=== PATIENT | female | born 1955 | race Caucasian/White ===

== ENCOUNTER 2019-08-28 16:00 | Emergency (ER) | payer MEDICAID, OTHER ==
[~2019-08-28] VITALS: Ht 157.5 cm; Wt 59.0 kg
[2019-08-28 16:27] VITALS: BP 137/84
== END 2019-08-28 18:36 | disposition home or self-care (01) ==
LOC: ER 16:00
DX: S93.402A Sprain of unspecified ligament of left ankle, initial encounter (principal); W01.0XXA Fall on same level from slipping, tripping and stumbling without subsequent striking against object, initial encounter; Y93.89 Activity, other specified; Y92.89 Other specified places as the place of occurrence of the external cause; Y99.8 Other external cause status
CPT/HCPCS: 73610; 99283

== ENCOUNTER 2022-06-18 23:42 | Emergency (ER) | payer MEDICARE, MEDICAID ==
[~2022-06-18] VITALS: Ht 157.5 cm; Wt 57.7 kg
[2022-06-18 23:57] VITALS: BP 144/104
[2022-06-19] MEDS ORDERED: HYDROcodone/acetaminophen 5mg/325mg tablet PO ONE (01:50)
[2022-06-19] MEDS ORDERED: HYDR-3965 PO (01:51)
== END 2022-06-19 02:10 | disposition home or self-care (01) ==
LOC: ER 23:42
DX: M54.59 Other low back pain (principal); Z88.8 Allergy status to other drugs, medicaments and biological substances; Z79.899 Other long term (current) drug therapy; W11.XXXA Fall on and from ladder, initial encounter; Y93.89 Activity, other specified; Y92.89 Other specified places as the place of occurrence of the external cause; Y99.8 Other external cause status
CPT/HCPCS: 72070; 99284

== ENCOUNTER 2022-08-23 18:28 | Emergency (ER) | payer OTHER, MEDICAID ==
[~2022-08-23] VITALS: Ht 157.5 cm; Wt 59.1 kg
[2022-08-23 18:54] VITALS: BP 162/92
== END 2022-08-23 21:23 | disposition left against medical advice (07) ==
LOC: ER 18:29
DX: M54.9 Dorsalgia, unspecified (principal); Z53.21 Procedure and treatment not carried out due to patient leaving prior to being seen by health care provider
CPT/HCPCS: 99281

== ENCOUNTER 2023-07-25 09:50 | Day surgery (SDC) | payer OTHER, MEDICAID ==
[~2023-07-25] VITALS: Ht 157.5 cm; Wt 54.5 kg
[~2023-07-25 09:50] MED LIST: ALBUTEROL; CHOL500044 PO; DULO20CA18 PO; HYDR-3965 PO; LEVO50TA8 PO; LISI10TA27 PO; ROSU10TA28 PO
[2023-07-25 10:18] VITALS: BP 165/94; PULSE 85; RESP 16
[2023-07-25] MEDS ORDERED: MIDAZolam 1 MG/ML 5ML VIAL ONE (11:31)
[2023-07-25] MEDS ORDERED: fentaNYL/PF 50MCG/1 ML 2ML syringe ONE (11:31)
[2023-07-25] MEDS ORDERED: diphenhydrAMINE 50 mg/ml inj ONE (11:31)
[2023-07-25 12:07] VITALS: BP 140/90; PULSE 71; RESP 14; O2SAT 100
[2023-07-25 12:17] VITALS: BP 137/84; PULSE 89; RESP 16; O2SAT 98
[2023-07-25 12:27] VITALS: BP 136/43; PULSE 70; RESP 15; O2SAT 98
[2023-07-25 12:37] VITALS: BP 138/82; PULSE 66; RESP 17; O2SAT 98
== END 2023-07-25 13:22 | disposition home or self-care (01) ==
LOC: GI LAB 09:50
PROVIDERS: ATTEND Internal Medicine Gastroenterology
DX: Z12.11 Encounter for screening for malignant neoplasm of colon (principal); K57.30 Diverticulosis of large intestine without perforation or abscess without bleeding
CPT/HCPCS: 99153; G0121; G0500; J1200; J2250; J3010; J7030; Z7512; 45378; 99152; A4620

== ENCOUNTER 2023-07-28 10:56 | Emergency (ER) | payer OTHER, MEDICAID ==
[~2023-07-28] VITALS: Ht 157.5 cm; Wt 56.9 kg
[2023-07-28 10:58] VITALS: BP 157/97
[2023-07-28] MEDS: ketorolac tromethamine 15mg/ml inj. IM ONE (12:21)
[2023-07-28] MEDS ORDERED: CYCL-394 PO (12:41)
[2023-07-28 13:13] VITALS: PULSE 70; TEMP 98.9; O2SAT 99
[2023-07-28 13:14] VITALS: RESP 17
== END 2023-07-28 13:14 | disposition home or self-care (01) ==
LOC: ER 10:56
DX: S29.012A Strain of muscle and tendon of back wall of thorax, initial encounter (principal); Z88.8 Allergy status to other drugs, medicaments and biological substances; Z79.899 Other long term (current) drug therapy; W19.XXXA Unspecified fall, initial encounter; Y93.89 Activity, other specified; Y92.89 Other specified places as the place of occurrence of the external cause; Y99.8 Other external cause status
CPT/HCPCS: 72074; 96372; 99284; J1885

== ENCOUNTER 2023-08-07 14:14 | Emergency (ER) | payer OTHER, MEDICAID ==
[~2023-08-07] VITALS: Ht 157.5 cm; Wt 56.8 kg
[~2023-08-07 14:14] MED LIST changes: +CYCL-394 PO; -HYDR-3965 PO; -ROSU10TA28 PO; +ROSU10TA72 PO
[2023-08-07 14:55] LABS: BASOPHILS % (AUTO) 0.8 % (0-1); EOSINOPHILS % (AUTO) 0.1 % (0-6); HEMATOCRIT 43.4 % (35.0-45.0); HEMOGLOBIN 14.2 g/dl (12.0-16.0); LYMPHOCYTES # (AUTO) 0.9 X10'3 (1.1-4.8); MEAN CORPUSCULAR HGB CONC 32.8 g/dL (33.0-36.5); MEAN CORPUSCULAR VOLUME 88.6 FL (78-98); MEAN PLATELET VOLUME 9.4 FL (7.4-10.4); MONOCYTES # (AUTO) 0.4 X10'3 (0-0.9); MONOCYTES % (AUTO) 7.2 % (2-12); NEUTROPHILS # (AUTO) 4.1 X10'3 (1.8-7.7); NEUTROPHILS % (AUTO) 74.9 % (42-75); PLATELET COUNT 213 X10'3 (140-440); RED BLOOD COUNT 4.91 X10'6 (4.20-5.60); RED CELL DISTRIBUTION WIDTH 14.5 % (11.5-14.5); WHITE BLOOD COUNT 5.4 X10'3 (4.5-11.0)
[2023-08-07 15:16] LABS: ALBUMIN 3.9 G/DL (3.4-5.0); ANION GAP 10 (8-16); BLOOD UREA NITROGEN 13 MG/DL (7-18); BUN/CREATININE RATIO 14.8 (10.0-20.0); CALCIUM 9.4 MG/DL (8.5-10.1); CHLORIDE 106 MMOL/L (99-107); CREATININE 0.88 MG/DL (0.40-0.90); GLUCOSE 131 MG/DL (70-104); POTASSIUM 3.8 MMOL/L (3.5-5.1); PRO BRAIN NATRIURETIC PEPTIDE 76 PG/ML (0-125); SODIUM 143 MMOL/L (135-145); TOTAL CARBON DIOXIDE 26.8 MMOL/L (24-32); eCRCL 50 ML/MIN; eGFR 64 ML/MIN
[2023-08-07 15:29] LABS: D-DIMER 0.46 MG/L FEU (0-0.50)
[2023-08-07] MEDS ORDERED: FLUT1BLS4 INH (17:58)
[2023-08-07] MEDS ORDERED: HYDR-3973 PO (17:58)
[2023-08-07 18:19] VITALS: BP 148/90; PULSE 88; RESP 15; TEMP 98.2; O2SAT 98
== END 2023-08-07 18:15 | disposition home or self-care (01) ==
LOC: ER 14:15
DX: J44.9 Chronic obstructive pulmonary disease, unspecified (principal); M25.512 Pain in left shoulder; Z88.8 Allergy status to other drugs, medicaments and biological substances; Z79.899 Other long term (current) drug therapy; Z79.2 Long term (current) use of antibiotics
CPT/HCPCS: 36415; 71045; 80048; 83880; 84484; 85025; 85379; 93005; 99285

== ENCOUNTER 2024-06-12 08:47 | Outpatient (CLI) | payer MEDICARE, MEDICAID ==
[~2024-06-12 08:47] MED LIST changes: -CYCL-394 PO; +FLUT1BLS4 INH
--- NOTE | 2024-06-12 11:19 | RADIOLOGY REPORT ---
[facility] INDICATION: CHRONIS BACK PAIN COMPARISON: DI THORACIC SPINE COMPLETE on DOS: 07/28/23, THORACIC SPINE LITD on DOS: 06/19/22 TECHNIQUE:4 views of the thoracic spine were obtained. FINDINGS: The thoracic vertebral alignment is normal. The intervertebral disc spaces are well-maintained. No significant facet arthropathy is noted. No acute fracture, vertebral compression deformity or aggressive osseous lesions. The imaged thorax and abdomen are grossly unremarkable. IMPRESSION: No acute fracture.
--- NOTE | 2024-06-12 11:19 | RADIOLOGY REPORT ---
INDICATION: CHRONIS BACK PAIN COMPARISON: None TECHNIQUE: 3 views of the lumbar spine were obtained. FINDINGS: The lumbar vertebral alignment is normal. Multilevel degenerative changes most severe at L4-L5 through L5-S1 causing moderate neural foraminal and spinal canal stenosis No acute fracture, vertebral compression deformity or aggressive osseous lesions. The paravertebral soft tissues are grossly unremarkable. IMPRESSION: No acute fracture or subluxation.
--- NOTE | 2024-06-12 11:21 | RADIOLOGY REPORT ---
INDICATION: CHRONIS BACK PAIN COMPARISON: None TECHNIQUE: 3 views of the lumbar spine were obtained. FINDINGS: The lumbar vertebral alignment is normal. Multilevel degenerative changes most pronounced at L4-L5 through L5-S1 causing moderate neural forami nal and spinal canal stenosis. No acute fracture, vertebral compression deformity or aggressive osseous lesions. The paravertebral soft tissues are grossly unremarkable. IMPRESSION: No acute fracture or subluxation.
== END 2024-06-13 23:59 | disposition home or self-care (01) ==
LOC: RAD 08:47
PROVIDERS: ATTEND Registered Nurse
DX: M47.817 Spondylosis without myelopathy or radiculopathy, lumbosacral region (principal); M54.9 Dorsalgia, unspecified; M48.07 Spinal stenosis, lumbosacral region
CPT/HCPCS: 72070; 72100; 72220

== ENCOUNTER 2024-06-17 04:01 | Emergency (ER) | payer MEDICARE, MEDICAID ==
[~2024-06-17] VITALS: Ht 157.5 cm; Wt 68.0 kg
--- NOTE | 2024-06-17 04:13 | ELECTROCARDIOGRAPH REPORT ---
[facility] Test Date: 2024-06-17 Test Time: 04:11:30 Pat Name: SURENDRA WALTON Department: [facility]-ER Patient ID: [facility]-[id number] Room: Gender: F Medical Aide: : 1955 Requested By: KIN VALLEJO Order Number: [id number] Reading MD: Measurements Intervals [place] Rate: 88 P: 76 VA: 144 QRS: 96 QRSD: 82 T: -19 QT: 350 QTc: 424 Interpretive Statements Sinus rhythm Right axis deviation Nonspecific T abnormalities, inferior leads Please click the below link to view image of tracing.
[2024-06-17 04:39] LABS: BASOPHILS % (AUTO) 0.8 % (0-1); EOSINOPHILS % (AUTO) 0.8 % (0-6); HEMATOCRIT 41.9 % (35.0-45.0); HEMOGLOBIN 13.8 g/dl (12.0-16.0); LYMPHOCYTES % (AUTO) 19.1 % (21-51); MEAN CORPUSCULAR HGB CONC 32.9 g/dL (33.0-36.5); MONOCYTES # (AUTO) 0.5 X10'3 (0-0.9); MONOCYTES % (AUTO) 9.3 % (2-12); NEUTROPHILS # (AUTO) 3.8 X10'3 (1.8-7.7); PLATELET COUNT 190 X10'3 (140-440); RED BLOOD COUNT 4.76 X10'6 (4.20-5.60); RED CELL DISTRIBUTION WIDTH 14.8 % (11.5-14.5); WHITE BLOOD COUNT 5.4 X10'3 (4.5-11.0)
--- NOTE | 2024-06-17 04:47 | Physician Documentation ---
History of Present Illness ~ General Chief Complaint: Multiple Medical Complaints Stated Complaint: MULTIPLE COMPLAINTS Time Seen by MD: 04:46 Primary Medical Doctor: Dr. Foster Mode of Arrival: EMS History of Present Illness Initial Comments Patient presents to the emergency room for evaluation of left posterior shoulder pain after slipping in the rain and hitting it on a mailbox and generally feeling "crummy". No nausea no vomiting no diarrhea no constipation no head strike no dysuria. Medication Reconciliation Allergies: Coded Allergies: pseudoephedrine (Verified Allergy, Unknown, 06/17/24) Scheduled Cholecalciferol (Vitamin D3) (Vitamin D3), 1 TAB PO QAM, (Reported) Duloxetine HCl (Duloxetine HCl), 1 CAP PO DAILY, (Reported) Fluticasone/Umeclidin/Vilanter (Trelegy Ellipta 100-62.5-25), 1 PUFFS INH DAILY Levothyroxine Sodium (Levothyroxine Sodium), 1 TAB PO DAILY, (Reported) Lisinopril (Lisinopril), 1 TAB PO DAILY, (Reported) Rosuvastatin Calcium (Rosuvastatin Calcium), 1 TAB PO DAILY, (Reported) Miscellaneous Medications [Albuterol], (Reported) Past Medical History Past Medical History: No Pertinent History Past Surgical History: noncontributory Alcohol Use: None Drug Use: none Lives with: S/O Lives In: Home Review of Systems ROS All review of systems negative except as per HPI Physical Exam Physical Exam Vital Signs: Temperature: 98.4, Source: Oral, Heart Rate: 97, Respiratory Rate: 19, BP: 142/86, Pulse Oximetry: 97, Weight: 68.000 Oxygen Flow Rate: 0 Physical Exam General: Patient is awake, alert, oriented x4 in no acute distress Head: Normocephalic and atraumatic. Eyes: Conjunctival normal. EOMI. PERRL. ENT: Mucous membranes moist. Neck: Supple, trachea is midline. Chest: Clear to auscultation bilaterally without rales, rhonchi, or wheezes. There is no accessory muscle use or retractions. Cardiac: RRR without murmurs, gallops, or rubs. Back: Tenderness to palpation to left trapezius muscle. No ecchymosis or abrasions Progress Results/Orders Results/Orders Orders - MICHA OLIVIA MD Chest,Single View (06/17/24 04:30) Monitor (06/17/24 04:16) Saline Lock (06/17/24 04:16) Oxygen (06/17/24 04:16) General Nursing Order (06/17/24 05:11) Completed Orders - MICHA OLIVIA MD Electrocardiogram (06/17/24 04:07) Chest,Single View (06/17/24 04:30) Cbc/Diff (06/17/24 04:16) PBNP (06/17/24 04:16) CMP (06/17/24 04:16) Hs Troponin I W Calculations (06/17/24 04:16) Hs Troponin I W Calculations (06/17/24 06:16) Ketorolac Trometh 15mg/Ml Vial (Toradol (06/17/24 04:55) Hydrocodone/Apap 5/325mg Tab ([place] (06/17/24 04:55) Urinalysis, Cult If Indicated (06/17/24 04:55) Normal Saline 1000ml (Sodium Chloride 10 (06/17/24 05:10) Vital Signs 06/17/24 06/17/24 06/17/24 06/17/24 04:04 04:11 04:17 05:01 Temp 98.4 98.4 Pulse 88 97 Resp 19 22 19 15 B/P (MAP) 148/69 142/86 (104) Pulse Ox 99 97 O2 Flow Rate 0 0 06/17/24 06/17/24 05:55 06:18 Temp 98.4 98.4 Pulse 88 81 Resp 19 18 B/P (MAP) 140/78 (98) 144/68 Pulse Ox 97 99 O2 Flow Rate 0 Laboratory Tests Test 06/17/24 04:30 06/17/24 04:39 06/17/24 06:59 White Blood Count 5.4 Red Blood Count 4.76 Hemoglobin 13.8 Hematocrit 41.9 Mean Corpuscular Volume 88.0 Mean Corpuscular Hemoglobin 29.0 Mean Corpuscular Hemoglobin Concent 32.9 L Red Cell Distribution Width 14.8 H Platelet Count 190 Mean Platelet Volume 10.0 Neutrophils (%) (Auto) 70.0 Lymphocytes (%) (Auto) 19.1 L Monocytes (%) (Auto) 9.3 Eosinophils (%) (Auto) 0.8 Basophils (%) (Auto) 0.8 Neutrophils # (Auto) 3.8 Lymphocytes # (Auto) 1.0 L Monocytes # (Auto) 0.5 Eosinophils # (Auto) 0.0 Basophils # (Auto) 0.0 CBC Comment Sodium Level 142 Potassium Level 4.2 Chloride Level 107 Carbon Dioxide Level 28.4 Anion Gap 7 L Blood Urea Nitrogen 21 H Creatinine 0.91 H Estimated GFR/1.73 m2 62 BUN/Creatinine Ratio 23.1 H Glucose Level 104 Calcium Level 9.1 Total Bilirubin 0.1 Aspartate Amino Transf (AST/SGOT) 17 Alanine Aminotransferase (ALT/SGPT) 18 Alkaline Phosphatase 73 Troponin I High Sensitivity 4 5 Pro-B-Type Natriuretic Peptide 97 Total Protein 7.1 Albumin 3.8 Globulin 3.3 Albumin/Globulin Ratio 1.2 Chemistry Comments Urine Specimen Description Cln catch midstream Urine Color Yellow Urine Clarity Clear Urine pH 6.5 Urine Specific [place] <=1.005 Urine Protein Negative Urine Glucose (UA) Negative Urine Ketones Negative Urine Occult Blood Negative Urine Nitrite Negative Urine Bilirubin Negative Urine Urobilinogen 0.2 Urine Leukocyte Esterase Negative Urine Culture Indicated Not ind Volume Urine Centrifuged 10 ml Urine Comment Troponin I High Sens Percent Delta 25 Troponin I Hi Sens Absolute Change 1 Medical Decision Making Findings Patient presents to the emergency room with shoulder pain in vague complaint of feeling crummy. Given patient's age he was concern for possible ACS therefore labs ordered which were reassuring. Unknown cause for patient's feeling crummy. Possibly side effect of her shoulder pain. Given tenderness to palpation of her trapezius muscle I do not feel she requires workup and do acute aortic pathology or pulmonary embolism. Possible viral infection. Departure Disposition: HOME / SELF CARE / HOMELESS Impression: Primary Impression: Shoulder pain, left Condition: Stable Discharge Instructions: Shoulder Pain, [id number] Additional Instructions: All labs and imaging were reassuring. Possible viral syndrome. Follow up with your doctor Referrals: NO PRIMARY CARE PROVIDER (PCP) Education Educated: Patient Educated regarding: diagnosis, treatment, need for follow up Signature Scribe Signature: No scribe Attestation: The note accurately reflects work and decisions made by me.Micha Olivia MD 06/17/24 05:59 MICHA OLIVIA MD June 17, 2024 04:47
[2024-06-17 04:55] LABS: ALANINE AMINOTRANSFERASE 18 U/L (12-78); ALBUMIN 3.8 G/DL (3.4-5.0); ALBUMIN/GLOBULIN RATIO 1.2 (1.1-1.5); ALKALINE PHOSPHATASE 73 IU/L (46-116); ANION GAP 7 (8-16); ASPARTATE AMINO TRANSFERASE 17 U/L (10-37); BILIRUBIN,TOTAL 0.1 MG/DL (0.1-1.0); BLOOD UREA NITROGEN 21 MG/DL (7-18); BUN/CREATININE RATIO 23.1 (10.0-20.0); CALCIUM 9.1 MG/DL (8.5-10.1); CHLORIDE 107 MMOL/L (99-107); CREATININE 0.91 MG/DL (0.40-0.90); GLUCOSE 104 MG/DL (70-104); POTASSIUM 4.2 MMOL/L (3.5-5.1); SODIUM 142 MMOL/L (135-145); TOTAL CARBON DIOXIDE 28.4 MMOL/L (24-32); TOTAL PROTEIN 7.1 G/DL (6.4-8.2); eCRCL 47 ML/MIN; eGFR 62 ML/MIN
[2024-06-17] MEDS: ketorolac trometh 15mg/ml vial 15 MG/ML ML IV ONE (05:01)
[2024-06-17] MEDS: HYDROcodone/acetaminophen 5mg/325mg tablet PO ONE (05:01)
[2024-06-17 05:02] LABS: PRO BRAIN NATRIURETIC PEPTIDE 97 PG/ML (0-125)
--- NOTE | 2024-06-17 05:04 | RADIOLOGY REPORT ---
EXAM: XR Chest, 1 View CLINICAL INDICATION: CP TECHNIQUE: Frontal view of the chest. COMPARISON: DI CHEST,SINGLE VIEW on DOS: 08/07/23 FINDINGS: LUNGS AND PLEURAL SPACES: Left basilar atelectasis or pneumonia. No pneumothorax. HEART: Unremarkable. No cardiomegaly. MEDIASTINUM: Unremarkable. Normal mediastinal contour. BONES/JOINTS: Unremarkable. No acute fracture. OTHER FINDINGS: . . . IMPRESSION: Left basilar atelectasis or pneumonia.
[2024-06-17 05:54] LABS: BILIRUBIN,URINE NEGATIVE (Neg); CLARITY,URINE CLEAR (Clear); COLOR,URINE YELLOW (Yellow); GLUCOSE, URINE NEGATIVE (Neg); KETONES,URINE NEGATIVE (Neg); LEUKOCYTE ESTERASE ,URINE NEGATIVE (Neg); NITRITES, URINE NEGATIVE (Neg); OCCULT BLOOD,URINE NEGATIVE (Neg); PH,URINE 6.5 (4.8-8.0); PROTEIN,URINE NEGATIVE (Neg); UROBILINOGEN,URINE 0.2 E.U/dL (0.2-1.0)
[2024-06-17] MEDS: normal saline 1000ml 1,000 ML IV ONE (05:54)
[2024-06-17 05:55] LABS: UA COLLECTION TYPE CLN CATCH MIDSTREAM
[2024-06-17 06:18] VITALS: BP 144/68; PULSE 81; RESP 18; TEMP 98.4; O2SAT 99
== END 2024-06-17 07:32 | disposition home or self-care (01) ==
LOC: ER 04:02
DX: M25.512 Pain in left shoulder (principal); R94.31 Abnormal electrocardiogram [ECG] [EKG]; G43.909 Migraine, unspecified, not intractable, without status migrainosus; Z88.8 Allergy status to other drugs, medicaments and biological substances
CPT/HCPCS: 36415; 71045; 80053; 81003; 83880; 84484; 85025; 93005; 96361; 96374; 99285; J1885; J7030

== ENCOUNTER 2024-07-31 22:31 | Emergency (ER) | payer MEDICARE, MEDICAID ==
[~2024-07-31] VITALS: Ht 152.4 cm; Wt 161.0 kg
[2024-07-31 22:43] VITALS: BP 171/104; PULSE 97; O2SAT 97
--- NOTE | 2024-07-31 23:38 | Physician Documentation ---
History of Present Illness ~ Chief Complaint: Back Pain Stated Complaint: BACK PAIN Time Seen by MD: 23:32 Primary Medical Doctor: Dr. Foster Source: patient Mode of Arrival: POV Exam Limitations: no limitations HPI 69-year-old female with chronic back pain is having difficulty with her medication management due to [facility] closing she was unable to get her prescription of pain medication. She does have an appointment with pain management provider tomorrow morning in his requesting a dose of her medications tonight to make it through until her appointment. Medication Reconciliation Allergies: Coded Allergies: pseudoephedrine (Verified Allergy, Unknown, 07/31/24) Scheduled Cholecalciferol (Vitamin D3) (Vitamin D3), 1 TAB PO QAM, (Reported) Duloxetine HCl (Duloxetine HCl), 1 CAP PO DAILY, (Reported) Fluticasone/Umeclidin/Vilanter (Trelegy Ellipta 100-62.5-25), 1 PUFFS INH DAILY Levothyroxine Sodium (Levothyroxine Sodium), 1 TAB PO DAILY, (Reported) Lisinopril (Lisinopril), 1 TAB PO DAILY, (Reported) Rosuvastatin Calcium (Rosuvastatin Calcium), 1 TAB PO DAILY, (Reported) Miscellaneous Medications [Albuterol], (Reported) Past Medical History Past Medical History: No Pertinent History Past Surgical History: noncontributory Alcohol Use: None Drug Use: none Lives with: S/O Lives In: Home Review of Systems All Other Systems at this time: Reviewed and Negative Physical Exam Physical Exam Vital Signs: Temperature: 98.0, Source: Oral, Heart Rate: 97, Respiratory Rate: 16, BP: 171/104, Pulse Oximetry: 97, Weight: 161.000 Oxygen Flow Rate: 0 General Appearance: alert, WD/WN, no apparent distress Respiratory: no respiratory distress BacK: no CVA tenderness, no vertebral tenderness, tender Back Back pain Progress Results/Orders Results/Orders Vital Signs 07/31/24 22:43 Temp 98.0 Pulse 97 Resp 16 B/P (MAP) 171/104 Pulse Ox 97 O2 Flow Rate 0 Medical Decision Making Findings Medications prescribed tonight for chronic pain patient to follow up at [facility] tomorrow Departure Time of Disposition: 23:37 Disposition: 01 HOME / SELF CARE / HOMELESS Impression: Primary Impression: Low back pain Condition: Stable Discharge Instructions: Chronic Back Pain Additional Instructions: Maintain appointment was specialist tomorrow morning. Referrals: NO PRIMARY CARE PROVIDER (PCP) Education Educated: Patient Educated regarding: diagnosis, treatment, need for follow up Signature Scribe Signature: No scribe Attestation: The note accurately reflects work and decisions made by me.Sandra LOPEZ 07/31/24 23:38 SANDRA SOLORZANO NP Jul 31, 2024 23:38
[2024-07-31 23:40] VITALS: TEMP 98
[2024-07-31] MEDS: gabapentin 400mg capsule PO STA (23:49)
[2024-07-31 23:50] VITALS: RESP 18
[2024-07-31] MEDS: HYDROcodone/acetaminophen 10/325mg tab PO ONE (23:50)
== END 2024-07-31 23:51 | disposition home or self-care (01) ==
LOC: ER 22:31
DX: M54.50 Low back pain, unspecified (principal); Z88.8 Allergy status to other drugs, medicaments and biological substances; Z79.899 Other long term (current) drug therapy
CPT/HCPCS: 99283

== ENCOUNTER 2024-08-02 03:38 | Emergency (ER) | payer MEDICARE, MEDICAID ==
[~2024-08-02] VITALS: Ht 157.5 cm; Wt 73.2 kg
--- NOTE | 2024-08-02 06:25 | Physician Documentation ---
History of Present Illness ~ Chief Complaint: Back Pain Stated Complaint: BACK PAIN Time Seen by MD: 06:08 Primary Medical Doctor: Dr. Foster HPI 69 year old female with chronic low back pain, unable to fill her prescription for pain medications. No new symptoms, these are chronic. Denies N/V/D. Denies weakness/numbness/tingling to BLE, denies fever, deies IVDU. Medication Reconciliation Allergies: Coded Allergies: pseudoephedrine (Verified Allergy, Unknown, 08/02/24) Scheduled Cholecalciferol (Vitamin D3) (Vitamin D3), 1 TAB PO QAM, (Reported) Duloxetine HCl (Duloxetine HCl), 1 CAP PO DAILY, (Reported) Fluticasone/Umeclidin/Vilanter (Trelegy Ellipta 100-62.5-25), 1 PUFFS INH DAILY Levothyroxine Sodium (Levothyroxine Sodium), 1 TAB PO DAILY, (Reported) Lisinopril (Lisinopril), 1 TAB PO DAILY, (Reported) Rosuvastatin Calcium (Rosuvastatin Calcium), 1 TAB PO DAILY, (Reported) Miscellaneous Medications [Albuterol], (Reported) Past Medical History Past Medical History: No Pertinent History Past Surgical History: noncontributory Alcohol Use: None Drug Use: none Lives with: S/O Lives In: Home Review of Systems All Other Systems at this time: Reviewed and Negative Physical Exam Physical Exam Vital Signs: RN Vital Signs have been reviewed: Yes, Temperature: 98.6, Source: Oral, Heart Rate: 91, Respiratory Rate: 16, BP: 164/108, Pulse Oximetry: 99, Weight: 73.180 Physical Exam Gen: no distress HEENT: PERRL, no discharge Pulm: no distress, normal WOB MSK: no deformity skin: w/d/i Neuro:nonfocal Progress Results/Orders Reviewed/noted all lab results: Yes Results/Orders Completed Orders - RUTH DEL VALLE MD Hydrocodone/Apap 5/325mg Tab ([place] 5/32 (08/02/24 06:15) Ketorolac Trometh 30mg/Ml Vial (Toradol (08/02/24 06:15) Vital Signs 08/02/24 08/02/24 03:39 05:31 Temp 98.6 Pulse 81 91 Resp 15 16 B/P (MAP) 146/83 164/108 (126) Pulse Ox 98 99 Medical Decision Making Findings 69 year old female with chronic low back pain. Meds, discharge, follow up with PCP. No red flag signs/symptoms. Departure Disposition: HOME / SELF CARE / HOMELESS Impression: Primary Impression: Chronic back pain Condition: Stable Discharge Instructions: Chronic Back Pain Referrals: NO PRIMARY CARE PROVIDER (PCP) Education Educated: Patient Educated regarding: diagnosis, treatment, prognosis, need for follow up Signature Scribe Signature: . Attestation: . RUTH DEL VALLE MD Aug 02, 2024 06:24
[2024-08-02] MEDS ORDERED: HYDR-3965 PO (06:32)
[2024-08-02] MEDS: HYDROcodone/acetaminophen 5mg/325mg tablet PO ONE (06:42)
[2024-08-02] MEDS: ketorolac trometh 30MG/ML vial 30 MG/ML VIAL IM ONE (06:42)
[2024-08-02 06:47] VITALS: BP 175/112; PULSE 89; RESP 16; O2SAT 97
[2024-08-02 07:04] VITALS: TEMP 98.6
== END 2024-08-02 07:05 | disposition home or self-care (01) ==
LOC: ER 03:39
DX: G89.29 Other chronic pain (principal); M54.50 Low back pain, unspecified; Z88.8 Allergy status to other drugs, medicaments and biological substances; Z79.899 Other long term (current) drug therapy
CPT/HCPCS: 96372; 99283; J1885